=== PATIENT | female | born 1985 | race African-American/Black ===

== ENCOUNTER 2021-02-12 20:26 | Emergency (ER) | payer OTHER ==
[~2021-02-12] VITALS: Ht 157.5 cm; Wt 51.3 kg
[~2021-02-12 20:26] MED LIST: NOHOMEMEDICATIONS
[2021-02-12 20:41] LABS: URINE BILIRUBIN NEGATIVE (Negative); URINE BLOOD NEGATIVE (Negative); URINE CLARITY CLEAR; URINE COLOR YELLOW; URINE GLUCOSE-RANDOM* NEGATIVE (Negative); URINE KETONES NEGATIVE (Negative); URINE LEUKOCYTES-REFLEX NEGATIVE (Negative); URINE NITRITE-REFLEX NEGATIVE (Negative); URINE PROTEIN (DIPSTICK) NEGATIVE (Negative); URINE SPECIFIC GRAVITY >= 1.030 (1.005-1.035); URINE UROBILINOGEN 0.2 E.U./dl (0.2-1.0)
[2021-02-12] MEDS ORDERED: CELEXA 10 MG TA10 M1 PO (20:48)
[2021-02-12] MEDS ORDERED: MIRALAX119 GM PO (20:49)
[2021-02-12 20:53] LABS: ABSOLUTE NEUTROPHILS 7.2 thou/uL (1.4-8.2); BASOPHILS 0.2 % (0.0-2.0); EOSINOPHILS 0.2 % (0.0-3.0); HEMATOCRIT 42.5 % (37.0-47.0); HEMOGLOBIN 14.8 gm/dL (12.0-15.0); LYMPHOCYTES 4.2 % (24.0-44.0); MCH 33.7 pg (26.0-34.0); MCV 96.4 fL (80.0-100.0); MONOCYTES 4.5 % (1.0-8.0); PLATELET COUNT 300 thou/uL (150-400); POLYS 90.9 % (36.0-66.0); RBC 4.41 mil/uL (4.20-5.00); RDW 12.8 % (10.5-14.5); WBC 7.9 thou/uL (4.0-11.0)
[2021-02-12 20:56] LABS: CALCIUM 9.2 mg/dL (8.5-10.1); CREATININE 1.1 mg/dL (0.6-1.0); POTASSIUM 3.3 mmol/L (3.5-5.1)
[2021-02-12 21:03] LABS: ALBUMIN 4.3 g/dL (3.4-5.0); TOTAL BILIRUBIN 0.7 mg/dL (0.2-1.0); TOTAL PROTEIN 8.5 g/dL (6.4-8.2)
[2021-02-12 22:29] VITALS: BP 116/69
[2021-02-12] MEDS ORDERED: ZOFRAN ODT4 MG PO (22:38)
== END 2021-02-12 22:53 | disposition home or self-care (01) ==
LOC: ER 20:26
PROVIDERS: Emergency Medicine
DX: K52.9 Noninfective gastroenteritis and colitis, unspecified (principal); J45.909 Unspecified asthma, uncomplicated; Z79.899 Other long term (current) drug therapy